=== PATIENT | female | born 1995 | race Caucasian/White ===

== ENCOUNTER 2019-02-05 13:24 | Emergency (ER) | payer SELFPAY ==
[2019-02-05 13:32] VITALS: BP 122/76; PULSE 90; RESP 16; TEMP 36.6; O2SAT 99; BMI 22.1
--- NOTE | 2019-02-05 13:47 | W.ED.WOUNDLC ---
HPI - Wound/Laceration General: Chief Complaint: Wound/Laceration Stated Complaint: Lac to the right leg Time Seen by Provider: 02/05/19 13:46 History of Present Illness: HPI narrative: Patient was jumping on trampoline and hit her right lower leg metal bar of trampoline causing laceration. This incident occurred just before arrival to ED. Patient received tetanus last year. Patient denies any loss of consciousness, head trauma, nausea, vomiting. She is able to walk on her leg and has no pain when walking or with movement. Onset (ago): hour(s) Extremity Location: Right: lower leg (Laceration.) Place: home Patient tetanus UTD: Yes Context: accidental Associated symptoms: Reports no associated symptoms Review of Systems General: Reports: 10 or more systems reviewed and unremarkable except in HPI and below PFSH ED PFSH: Statuses (acute, chronic, etc) shown below reflect problem list status as previously entered and may not be historically accurate Social History Smoking and tobacco status: current every day smoker Female Reproductive History: Date of last menstrual period: 02/02/19 Physical Exam Const: COMMON NORMALS: oriented x3 HENMT: COMMON NORMALS: normocephalic HEAD & SCALP: normocephalic MOUTH: oral and palatal mucosa normal THROAT: posterior oropharynx normal and uvula midline Neck/C-Spine: COMMON NORMALS: supple GENERAL: Yes normal visual inspection Resp: COMMON NORMALS: normal respiratory effort, no retractions, no use of accessory muscles and clear to auscultation bilaterally AUSCULTATION: clear to auscultation bilaterally Cardio: COMMON NORMALS: regular rate, regular rhythm, S1 normal heart sound, S2 normal heart sound, no gallops, no clicks, no murmurs and peripheral pulses 2+ throughout RATE: regular rate RHYTHM: regular rhythm HEART SOUNDS: S1 normal and S2 normal PERIPHERAL PULSES: pulses 2+ throughout GI: COMMON NORMALS: normal to inspection, nondistended, normoactive bowel sounds, soft to palpation, non-tender and no masses PALPATION: Yes soft : COMMON NORMALS: Yes no CVA tenderness BLADDER/KIDNEY EXAM: Yes no CVA tenderness Back/Pelvis: COMMON NORMALS: no CVA tenderness Extremity: NARRATIVE EXTREMITY EXAM: No swelling, warmth or purulent drainage around laceration. GENERAL: Yes normal exam except as noted RIGHT LOWER EXTREMITY: Yes lower leg (Patient has linear laceration that is approximately 3 cm and superficial) Right lower leg: Yes inspection and Yes neurovascular exam (Intact) Neuro: COMMON NORMALS: oriented x3 GAIT: Yes normal gait Skin: COMMON NORMALS: no rashes or lesions noted GENERAL SKIN EXAM: no rashes or lesions noted TRAUMA: laceration (Not currently bleeding) linear, superficial, motor nerve function intact and sensation intact Procedures Laceration Laceration 1: Site: lower extremity Side (If applicable): right Size (cm): 3 Description: linear Depth: simple, single layer Local Anesthetic: lidocaine 1% and with epi Amount of anesthesia used (mL): 5 Pre-repair: irrigated extensively Skin layer closed with: nylon Size (cm): 4-0 Number of sutures: 6 Technique: simple, interrupted Course Vital Signs: Vital signs: Vital Signs Temperature 97.9 F 02/05/19 13:32 Pulse Rate 87 02/05/19 15:49 Respiratory Rate 16 02/05/19 15:49 Blood Pressure 120/72 02/05/19 15:49 Pulse Oximetry 100 02/05/19 15:49 Discharge Plan Discharge Patient Disposition: Home, Self-Care Clinical Impression: Laceration Condition: Stable Prescriptions: No Action No Known Home Medications RF: 0 Referrals: Blessing Mishra FNP [Primary Care Provider] - Discharge Diet: Regular Discharge Activity: Resume usual activity Activity Restrictions/Additional Instructions: Follow-up with primary care doctor. Sutures removed in 7-10 days. Keep the laceration dry and clean for 48 hours then he can remove the bandage applied new bandage an clean around laceration daily. Watch for signs of infection such as redness, swelling, pus and warmth. Discharge Date/Time: 02/05/19 15:59 Coding Level of Care Code ED Electronic Court Recorder for Charleen Diaz
[2019-02-05 15:49] VITALS: BP 120/72; PULSE 87; RESP 16; O2SAT 100
== END 2019-02-05 15:59 | disposition home or self-care (01) ==
PROVIDERS: Emergency Provider Family Medicine; Family Provider Nurse Practitioner; PCP Nurse Practitioner
DX: S81.811A Laceration without foreign body, right lower leg, initial encounter (principal); W22.09XA Striking against other stationary object, initial encounter; Y93.44 Activity, trampolining; F17.210 Nicotine dependence, cigarettes, uncomplicated
CPT/HCPCS: 12002; 99281; J2001

== ENCOUNTER 2019-02-15 11:50 | Emergency (ER) | payer SELFPAY ==
[2019-02-15 11:51] VITALS: BMI 21.8
[2019-02-15 11:54] VITALS: BP 103/66; PULSE 91; RESP 16; TEMP 36.8; O2SAT 100
--- NOTE | 2019-02-15 12:10 | W.ED.WOUNDLC ---
HPI - Wound/Laceration General: Chief Complaint: Wound/Laceration Stated Complaint: infected wound Time Seen by Provider: 02/15/19 11:58 Source: patient Mode of arrival: ambulatory Limitations: no limitations History of Present Illness: HPI narrative: Patient comes in for concerns of infection to the laceration of the right lower leg. Patient states that on the first of the year she had injured her leg when she cut it on the trampoline. Patient came in and had sutures placed but since that time she is noticed increasing redness and swelling around the wound. Patient appears well. Patient appears in mild pain. Review of Systems General: Reports: 10 or more systems reviewed and unremarkable except in HPI and below Skin/Breast: Reports: skin tenderness and changes in skin color PFSH ED PFSH: Statuses (acute, chronic, etc) shown below reflect problem list status as previously entered and may not be historically accurate Social History Smoking and tobacco status: current every day smoker Female Reproductive History: Date of last menstrual period: 02/02/19 Physical Exam Const: COMMON NORMALS: no apparent distress and oriented x3 GENERAL APPEARANCE: cooperative HENMT: COMMON NORMALS: normocephalic, external ears normal, EAC's normal, TM's normal bilaterally and external nose normal HEAD & SCALP: normal to inspection and normocephalic FACE & SINUS: normal facial exam NOSE: external nose normal GENERAL EAR: hearing not grossly impaired EXTERNAL EAR: Yes external ears normal EXTERNAL AUDITORY CANAL: EAC's normal TYMPANIC MEMBRANE: TM's normal bilaterally MOUTH: oral and palatal mucosa normal THROAT: posterior oropharynx normal Eye: COMMON NORMALS: PERRL and EOMs intact bilaterally PUPIL: Yes PERRL Neck/C-Spine: COMMON NORMALS: full ROM and no lymphadenopathy Lymph: LYMPHATIC: no lymphedema noted Chest: COMMONS NORMALS: inspection of chest normal and palpation of chest normal Resp: COMMON NORMALS: normal respiratory effort and clear to auscultation bilaterally AUSCULTATION: clear to auscultation bilaterally Cardio: COMMON NORMALS: regular rate and regular rhythm RATE: regular rate RHYTHM: regular rhythm GI: COMMON NORMALS: normal to inspection, nondistended, normoactive bowel sounds and non-tender : COMMON NORMALS: Yes no CVA tenderness BLADDER/KIDNEY EXAM: Yes no CVA tenderness Back/Pelvis: COMMON NORMALS: no CVA tenderness and thoracic and lumbar spine normal to inspection Extremity: COMMON NORMALS: normal to inspection GENERAL: No edema Neuro: COMMON NORMALS: oriented x3, moves all extremities and no focal motor deficits Psych: COMMON NORMALS: mental status grossly normal and cooperative Skin: NARRATIVE SKIN EXAM: Healing wound noted to the right lower leg along the vogel. Patient has a 6 cm scabbed wound with fourth centimeter surrounding area of redness. 6 sutures remain intact. Some warmth is noted to the wound. Course Vital Signs: Vital signs: Vital Signs Temperature 98.2 F 02/15/19 11:54 Pulse Rate 91 02/15/19 11:54 Respiratory Rate 16 02/15/19 11:54 Blood Pressure 103/66 02/15/19 11:54 Pulse Oximetry 100 02/15/19 11:54 MDM - Wound/Laceration MDM Narrative: Medical decision making narrative: Patient comes in due to concern for wound infection. On exam we noted a healing wound to the right vogel area. There was surrounding area of redness approximately 2 to 3 cm from the center of the wound. 6 sutures remained intact. Some purulent drainage was noted from the wound site. Differential diagnosis includes wound dehiscence, wound infection, malingering, need for suture removal. Sutures were removed wound remained intact but draining purulent fluid. Reviewed exam and recommendations for continued treatment with antibiotic by mouth and topical Bactroban ointment. Patient reported understanding and agreed to plan. Discharge Plan Discharge Patient Disposition: Home, Self-Care Clinical Impression: Wound infection, Laceration Condition: Stable Prescriptions: New Bactrim DS 800-160 mg tablet 1 tab PO BID 10 Days Qty: 20 RF: 0 Discharge Orders: Discharge Order (Routine); Ordered 02/15/19 Ordered By: Dar Villalpando Referrals: Blessing Mishra FNP [Primary Care Provider] - Discharge Diet: Usual diet Discharge Activity: Resume usual activity Activity Restrictions/Additional Instructions: Keep wound clean and dry Use antibiotic ointment and take oral antibiotics as directed Monitor for worsening signs and symptoms Return to ER for high fever with uncontrolled pain Follow-up with primary care in three days Coding Level of Care Code ED Director Of Managed Services for Charleen Diaz Exam Problem Focused
[2019-02-15] MEDS: mupirocin oint 22 gm 1 APPLIC TOPICAL (12:28)
== END 2019-02-15 12:25 | disposition home or self-care (01) ==
LOC: ER 12:37
PROVIDERS: Emergency Provider Nurse Practitioner Family; Family Provider Nurse Practitioner; PCP Nurse Practitioner
DX: S81.811A Laceration without foreign body, right lower leg, initial encounter (principal); L08.9 Local infection of the skin and subcutaneous tissue, unspecified; W45.8XXA Other foreign body or object entering through skin, initial encounter; F17.210 Nicotine dependence, cigarettes, uncomplicated
CPT/HCPCS: 99281

== ENCOUNTER → 2021-01-31 16:37 | Outpatient (BNVA) | payer OTHER, SELFPAY | PROVIDERS: Family Provider Nurse Practitioner; PCP Nurse Practitioner; Visit Provider Family Medicine | DX: Z01.812 Encounter for preprocedural laboratory examination (principal); Z20.822 Contact with and (suspected) exposure to COVID-19 | CPT/HCPCS: 87635 ==

== ENCOUNTER → 2021-03-16 08:15 | Outpatient (BNVA) | payer BC, SELFPAY | PROVIDERS: Family Provider Nurse Practitioner; PCP Nurse Practitioner; Referring Provider Family Medicine; Visit Provider Specialist | DX: G56.03 Carpal tunnel syndrome, bilateral upper limbs (principal); G56.22 Lesion of ulnar nerve, left upper limb; F17.200 Nicotine dependence, unspecified, uncomplicated | CPT/HCPCS: 95910 ==

== ENCOUNTER 2021-07-31 20:52 | Emergency (ER) | payer BC, MEDICAID, SELFPAY ==
--- NOTE | 2021-07-31 21:09 | XRR_ITS ---
PROCEDURE INFORMATION: Exam: XR Right Knee Exam date and time: 07/31/2021 11:21 PM Age: 26 years old Clinical indication: Injury or trauma; Fall; Swelling (edema); Knee; Right; Additional info: R knee injurry pain TECHNIQUE: Imaging protocol: Radiologic exam of the Right knee. Views: 3 views. COMPARISON: No relevant prior studies available. FINDINGS: Bones/joints: Small joint effusion. Soft tissues: Normal. XR/XR knee RT 3V* [id number] IMPRESSION: Small joint effusion.
[2021-07-31 22:45] VITALS: BP 120/64; PULSE 95; RESP 18; TEMP 36.9; O2SAT 98; BMI 18.1
[2021-07-31 22:59] VITALS: BP 96/58; PULSE 80; RESP 16; TEMP 37; O2SAT 99
--- NOTE | 2021-08-01 00:13 | ED_ITS ---
HPI - Extremity Problem General: Chief complaint: Extremity Injury, Lower Stated complaint: sent to ER per Yamile Cochran for right knee injury Time Seen by Provider: 07/31/21 23:18 History of Present Illness: Patient is a 26-year-old female comes to the ED with right knee injury. Approximately 1 week ago a fluorescent light bulb broke and a piece of glass penetrated into the superior lateral aspect of patient's right knee. She pulled the glass out of knee and then went and saw her PCP. She was put on prescription of doxycycline and just finished taking it. She is having some swelling and pain in her knee and some redness around puncture wound site on right knee. Endorses having a history of staph infections. Associated symptoms: Deny chest pain, fever(s) or rash Review of Systems Const: Denies: fever(s), chills or fatigue Eyes: Denies: change in vision or eye discomfort ENMT: Denies: throat pain, odynophagia, nasal discharge or nasal congestion Card: Denies: chest pain, palpitations, edema, swelling of feet/ankles, dyspnea on exertion or orthopnea Resp: Denies: dyspnea, productive cough or non-productive cough GI: Denies: abdominal pain, nausea, vomiting, diarrhea, constipation or hematochezia : Denies: flank pain, dysuria or hematuria Musc: Reports: extremity pain (Right knee) and extremity swelling (Right knee); Denies: neck pain or back pain Skin/Breast: Reports: new lesions (Healing puncture wound on lateral superior aspect of right knee); Denies: rash Neuro: Denies: headache(s), numbness in extremities or weakness in extremities PFS ED PFSH: Medical History No pertinent family history Surgical History No pertinent past surgical history Social History Smoking and tobacco status: current every day smoker Alcohol intake: never History of recent travel: No Female Reproductive History: Date of last menstrual period: 02/02/19 Physical Exam Const: COMMON NORMALS: no acute distress, patient oriented x3 and alert GENERAL APPEARANCE: cooperative HENMT: COMMON NORMALS: normocephalic HEAD & SCALP: normocephalic MOUTH: Normal oral and palatal mucosa present THROAT: posterior oropharynx normal and uvula midline Neck/C-Spine: COMMON NORMALS: supple GENERAL: Yes normal visual inspection Resp: COMMON NORMALS: normal respiratory effort, No retractions, No use of accessory muscles and clear to auscultation bilaterally AUSCULTATION: clear to auscultation bilaterally Cardio: COMMON NORMALS: regular rate, regular rhythm, S1 normal heart sound present, S2 normal heart sound present, No gallops present (Cardio), No clicks present (Cardio), No murmurs present (Cardio) and Peripheral pulses 2+ throughout RATE: regular rate RHYTHM: regular rhythm HEART SOUNDS: S1 normal heart sound present and S2 normal heart sound present PERIPHERAL PULSES: Peripheral pulses 2+ throughout GI: COMMON NORMALS: Normal to inspection, nondistended, normoactive bowel sounds present, Soft to palpation, non-tender and no masses PALPATION: Yes Soft to palpation : COMMON NORMALS: Yes no CVA tenderness BLADDER/KIDNEY EXAM: Yes no CVA tenderness Back/Pelvis: COMMON NORMALS: no CVA tenderness Extremity: NARRATIVE EXTREMITY EXAM: Right knee?visible swelling noted. Just to the superior and lateral aspect of knee she has a visible puncture wound with a little bit of surrounding erythema noted. No active bleeding noted. Pain with range of motion of knee joint. Neurovascular tact distally. No indications of septic joint Neuro: COMMON NORMALS: patient oriented x3 and moves all extremities SENSORIUM/ORIENTATION: Yes alert Skin: GENERAL SKIN EXAM: dry skin Course Vital Signs: Vital signs: Vital Signs Temperature 98.6 F 08/01/21 00:59 Pulse Rate 80 08/01/21 00:59 Respiratory Rate 16 08/01/21 00:59 Blood Pressure 96/58 08/01/21 00:59 Pulse Oximetry 99 08/01/21 00:59 MDM - Extremity (Nontraumatic) Medical Decision Making Patient is a 26-year-old female comes to the ED with swollen right knee. Approximately a week ago she had a puncture wound to the superior and lateral aspect of right knee. Past couple days she is having increased generalized right knee swelling and pain with movement. Vitals are stable. Patient does have a visible healing puncture wound on the superior lateral aspect of the knee. No signs of septic joint. Puncture wound appears to be healing well. Neurovascular tact distally. X-ray of right knee showed a small joint effusion. Given patient's recent puncture wound and visible knee swelling I am putting a referral for patient to be seen by Ortho for follow-up. Patient was stable for discharge home and sent home with some crutches and told to rest ice and elevate right knee. I told her case managers should contact her in the next several days to set up an appointment with Ortho for follow-up. Discharged home with a prescription for clindamycin due to puncture wound. Return to ED precautions given. Patient understood and agreed with plan. Lab Data Radiology Impressions Knee X-Ray 07/31/21 21:09 IMPRESSION: Small joint effusion. Discharge Plan Discharge Patient Disposition: Home Clinical Impression: Effusion of knee joint right, Puncture wound Condition: Stable Prescriptions: New clindamycin HCl 150 mg capsule 300 mg PO QID 7 Days Qty: 56 0RF mupirocin 2 % ointment 1 applic topical BID 7 Days Qty: 22 0RF No Action albuterol 90 mcg/actuation aerosol inhalation 0RF sertraline 25 mg tablet 25 mg PO DAILY 0RF buspirone 5 mg tablet 5 mg PO TID 0RF omeprazole 20 mg capsule,delayed release(DR/EC) 20 mg PO DAILY 0RF medroxyprogesterone [Depo-Provera] 150 mg/mL suspension IM 0RF Discharge Orders: Discharge ED (Routine); Ordered 08/01/21 Ordered By: Abdifatah Martinez Referrals: Maryuri Finnegan MD [Primary Care Provider] - Discharge Diet: Regular Discharge Activity: Increase activity as tolerated Patient Instructions: Puncture Wound (DC), Swollen Knee Joint (ED), Opioid Safety Activity Restrictions/Additional Instructions: Follow-up with medical provider as directed. Case management should contact you in the next several days to set up an appointment with orthopedic doctor for evaluation of right knee joint effusion. Take medications as prescribed. Use crutches help with ambulation and limit weightbearing on right knee for couple days to help with healing. Rest, ice and elevate right knee. Return to the ER or your medical provider if condition worsens. Please read and understand discharge instructions. Thank you for choosing [facility] for your healthcare needs today. Please realize this is an emergency room and that we are providing you with a medical screening exam and this may not be complete and all inclusive of all the testing and or work up that you may need to determine your ailment or severity o f your illness. It is very important that you follow up as instructed or that you return to the Emergency Department should you have concerns or if your condition changes or worsens in any way. Coding Level of Care Code ED Tow Motor Driver for Charleen Diaz Exam Comprehensive
[2021-08-01] MEDS: cefTRIAXone 1,000 MG in lidocaine 1% 2.1 ML 1 MG IM (00:40)
[2021-08-01] MEDS: HYDROcodone-acetaminophen 7.5-325 mg Tablet 1 TAB PO (00:40)
[2021-08-01 00:59] VITALS: BP 96/58; PULSE 80; RESP 16; TEMP 37; O2SAT 99
--- NOTE | 2021-08-08 10:58 | DCPLANNER ---
Addendum entered by Adriana Vega 08/29/21 12:16: Patient had a follow up appointment scheduled for 08.12.21 with Jose Antonio Boyer at ortho - patient did not attend appointment. Original Note: cafe manager had message to schedule a follow up appointment for patient with ortho. cafe manager sent patients information to the front office staff at ortho. Patients information will be printed and reviewed. Clinic will call patient with appointment information.
== END 2021-08-01 01:00 | disposition home or self-care (01) ==
PROVIDERS: Emergency Provider Physician Assistant; PCP Family Medicine
DX: M25.461 Effusion, right knee (principal); S81.031A Puncture wound without foreign body, right knee, initial encounter; W25.XXXA Contact with sharp glass, initial encounter; F17.210 Nicotine dependence, cigarettes, uncomplicated
CPT/HCPCS: 73562; 96372; 99284; E0114; J0696